=== PATIENT | female | born 1990 | race Caucasian/White ===

== ENCOUNTER 2016-07-20 22:16 | Emergency (ER) | payer OTHER ==
[2016-07-20] MEDS ORDERED: Ondansetron 4 MG Tab.DIS PO ONE (22:26)
[2016-07-20] MEDS ORDERED: GI Cocktail Oral Solution 30 ML PO ONE (22:26)
[2016-07-20 22:35] VITALS: BP 119/84
[2016-07-20] MEDS ORDERED: Ketorolac 60 MG/2 ML SDV IM ONE (22:44)
--- NOTE | 2016-07-20 22:59 | EDM.PDOC ---
ED HPI GI/ABDOMINAL - General Chief Complaint: Abdominal Pain Stated Complaint: Upper abdominal pain, N/V Time Seen by Provider: 07/20/16 22:26 Source of Information: Reports: Patient History Limitations: Reports: No limitations - History of Present Illness INITIAL COMMENTS - FREE TEXT/NARRATIVE: Patient suffers from non hodgkins lymphoma and did her 6th chemotherapy round on Monday. She has been feeling fine until this afternoon when she developed epigastric abdominal pain, nausea, and 1 episode of vomiting. She did not attempt to take any of her anti emetics. She states that this is something entirely different than what she has had before. She called and visited with [employer] addiction treatment counselor pediatric oncologist Dr. Mckeon who told her to be seen tonight. She denies chills, fever, SOB, change in LOC, no chest pain, no diarrhea, no bloody stools or urine, no blood in emesis. Symptom Onset Date: 07/20/16 Timing/Duration: Reports: Gradual onset Location: periumbilical Quality: Reports: cramping, fullness Severity: moderate Context: Denies: sick contact, bad/questionable food, out of country travel, recent trauma Associated Symptoms (-Female): Reports: nausea/vomiting - Related Data Allergies/ADRs: Allergies Allergy/AdvReac Type Severity Reaction Status Date / Time No Known Allergies Allergy Verified 07/20/16 22:35 Home Meds: Home Meds Metoclopramide [Reglan] 10 mg PO Q8H #2 tablet 07/20/16 [Rx] ED ROS GENERAL - Review of Systems Review Of Systems: See Below Constitutional: Reports: no symptoms HEENT: Reports: No symptoms Respiratory: Reports: no symptoms Cardiovascular: Reports: No symptoms Endocrine: Reports: no symptoms GI/Abdominal: Reports: Abdominal pain, Nausea, Vomiting : Reports: no symptoms Musculoskeletal: Reports: no symptoms Skin: Reports: no symptoms Neurological: Reports: no symptoms Psychiatric: Reports: No symptoms Hematologic/Lymphatic: Reports: no symptoms Immunologic: Reports: no symptoms ED EXAM, GI/ABD - Physical Exam Exam: See Below Exam Limited By: No limitations General Appearance: alert, WD/WN, anxious, mild distress Eyes: bilateral: EOMI Ears: normal TMs Nose: normal inspection Throat/Mouth: Normal inspection, Normal lips, Normal oropharynx Head: atraumatic, normocephalic, other (she does have some balding from her treatment regimen) Neck: normal inspection, supple, non-tender, full range of motion. No: lymphadenopathy (L), lymphadenopathy (R) Respiratory/Chest: no respiratory distress, lungs clear, normal breath sounds, no accessory muscle use, chest non-tender Cardiovascular: normal peripheral pulses, regular rate, rhythm, no edema GI/Abdominal: normal bowel sounds, soft, no organomegaly, no distention, no abnormal bruit, no mass, tenderness Extremities: normal inspection, normal range of motion, normal capillary refill Neurological: alert, oriented, CN II-XII intact, normal cognition, normal reflexes, no motor/sensory deficits Psychiatric: normal affect, anxious Skin Exam: Warm, Dry, Intact, Normal color Lymphatic: no adenopathy Course - Vital Signs Last Recorded V/S: Last Vital Signs Temp 36.3 C 07/20/16 22:16 Pulse 88 07/20/16 22:16 Resp 20 07/20/16 22:16 BP 119/84 07/20/16 22:16 Pulse Ox 97 07/20/16 22:16 - Orders/Labs/Meds Orders: Active Orders 24 hr Category Date Time Status Abdomen 2V AP Flat Upright [CR] Urgent Exams 07/20/16 22:47 Ordered Meds: Medications Discontinued Medications Generic Name Dose Route Start Last Admin Trade Name Diann PRN Reason Stop Dose Admin Al Hydroxide/Mg Hydroxide 30 ml 07/20/16 22:26 Gi Cocktail PO 07/20/16 22:27 ONETIME ONE Ketorolac Tromethamine 60 mg 07/20/16 22:44 Toradol IM 07/20/16 22:45 ONETIME ONE Ondansetron HCl 4 mg 07/20/16 22:26 07/20/16 22:43 Zofran Odt PO 07/20/16 22:27 4 mg ONETIME ONE Administration Departure - Departure Time of Disposition: 00:03 Disposition: Home, Self-Care 01 Condition: good Clinical Impression: Gastroenteritis Instructions: Viral Gastroenteritis, Adult, [id number], Abdominal Pain, Adult , [id number], Nausea and Vomiting, Adult, [id number], Ileus Forms: ED Department Discharge Additional Instructions: Your x-ray was inconclusive in ruling out an ileus. According to radiologic interpretation it could be an ileus, or a gastritis. You have chosen to not have a CT tonight to further investigate this and I have given you some signs and symptoms of ileus vs. a viral gastroenteritis. If you develop fever, chills, distended abdominal cavity with worsening pain, no gas or bowel movements, and increased vomiting, this may represent an ileus. If you are vomiting over the next day or two but improving it is more likely a virus. I recommend following up with your primary doctor as needed. If you believe you are worsening, return to the emergency room for an immediate CT scan to rule out ileus, bowel obstruction, or bowel rupture. Please call us with any questions or concerns. - Problem List & Annotations (1) Gastroenteritis SNOMED Code(s): 35326202 Code(s): K52.9 - NONINFECTIVE GASTROENTERITIS AND COLITIS, UNSPECIFIED Status: Acute Priority: Low Current Visit: Yes - Problem List Review Problem List Initiated/Reviewed/Updated: Yes - My Orders Last 24 Hours: My Active Orders 07/20/16 22:47 Abdomen 2V AP Flat Upright [CR] Urgent - Assessment/Plan Last 24 Hours: My Active Orders 07/20/16 22:47 Abdomen 2V AP Flat Upright [CR] Urgent Assessment:: gastroenteritis Plan: Your x-ray was inconclusive in ruling out an ileus. According to radiologic interpretation it could be an ileus, or a gastritis. You have chosen to not have a CT tonight to further investigate this and I have given you some signs and symptoms of ileus vs. a viral gastroenteritis. If you develop fever, chills, distended abdominal cavity with worsening pain, no gas or bowel movements, and increased vomiting, this may represent an ileus. If you are vomiting over the next day or two but improving it is more likely a virus. I recommend following up with your primary doctor as needed. You should also keep in touch with your oncologist over the next few days. If you believe you are worsening, return to the emergency room for an immediate CT scan to rule out ileus, bowel obstruction, or bowel rupture. Please call us with any questions or concerns.
[2016-07-20] MEDS ORDERED: Metoclopramide 10 MG/2 ML SDV IM ONE (23:44)
[2016-07-21] MEDS ORDERED: Metoclopramide 10 MG Tab ONE (00:06)
== END 2016-07-21 00:11 | disposition home or self-care (01) ==
LOC: VM.ED 22:16
DX: K52.9 Noninfective gastroenteritis and colitis, unspecified (principal)
CPT/HCPCS: 74020; 96372; 99284; A9270; J1885; J2765

== ENCOUNTER 2022-10-09 13:13 | Emergency (ER) | payer OTHER | END 2022-10-09 13:56 | disposition home or self-care (01) | LOC: MERGE 13:13 → VM.ED 13:13 | DX: I83.891 Varicose veins of right lower extremity with other complications (principal) | CPT/HCPCS: 12001; 99283 ==

== ENCOUNTER 2025-03-25 10:45 | Emergency (ER) | payer OTHER | END 2025-03-25 11:41 | disposition home or self-care (01) | LOC: VM.ED 10:45 | DX: I89.0 Lymphedema, not elsewhere classified (principal); L03.115 Cellulitis of right lower limb; L97.229 Non-pressure chronic ulcer of left calf with unspecified severity; L97.219 Non-pressure chronic ulcer of right calf with unspecified severity | CPT/HCPCS: 99283 ==